=== PATIENT | male | born 1990 | race American Indian/Alaskan Native ===

== ENCOUNTER 2017-04-16 10:57 | Emergency (ER) | payer MEDICAID ==
[2017-04-16 11:02] VITALS: BP 121/75; PULSE 61; RESP 18; TEMP 97.8; O2SAT 98; BMI 26.2
[2017-04-16] MEDS ORDERED: Bacitracin 500 Units/gm Oint Foilpak UD TOP ONE (11:21)
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
== END 2017-04-16 11:34 | disposition home or self-care (01) ==
LOC: C.ER 10:57
DX: S80.212A Abrasion, left knee, initial encounter (principal); V18.4XXA Pedal cycle driver injured in noncollision transport accident in traffic accident, initial encounter; Y92.89 Other specified places as the place of occurrence of the external cause

== ENCOUNTER 2018-07-22 14:33 | Emergency (ER) | payer OTHER, MEDICAID ==
[2018-07-22 15:02] VITALS: BMI 21.3
[2018-07-22 15:06] VITALS: BP 130/78; PULSE 76; RESP 18; TEMP 98.3; O2SAT 98
--- NOTE | 2018-07-22 15:53 | C.PDOC ---
History Of Present Illness 27 year old female presents to the ED for evaluation. Patient states he was at work and was picking something with his hands when he felt sudden pain to his left ventral wrist area. Patient reports mild discoloration to the area. Patient denies extremity numbness/weakness or any injury to the area. Time Seen by Provider: 07/22/18 15:08 Chief Complaint (Nursing): Finger,Hand,&Wrist History Per: Patient History/Exam Limitations: no limitations Onset/Duration Of Symptoms: Hrs Current Symptoms Are (Timing): Still Present Quality: "Pain" Additional History Per: Patient Past Medical History Reviewed: Historical Data, Nursing Documentation, Vital Signs Vital Signs: Last Vital Signs Temp 98.3 F 07/22/18 15:01 Pulse 76 07/22/18 15:01 Resp 18 07/22/18 15:01 BP 130/78 07/22/18 15:01 Pulse Ox 98 07/22/18 15:01 - Medical History PMH: No Chronic Diseases Surgical History: No Surg Hx Family History: States: Unknown Family Hx - Social History Hx Alcohol Use: Yes Hx Substance Use: No - Immunization History Hx Tetanus Toxoid Vaccination: No Hx Influenza Vaccination: No Hx Pneumococcal Vaccination: No Review Of Systems Musculoskeletal: Positive for: Other (left wrist ) Neurological: Negative for: Weakness, Numbness Physical Exam - Physical Exam Appears: Non-toxic, No Acute Distress Skin: Normal Color, Warm, Dry Extremity: Normal ROM, Capillary Refill (less than 2 seconds ) Neurological/Psych: Oriented x3, Normal Speech, Normal Cognition, Normal Motor, Normal Sensation ED Course And Treatment O2 Sat by Pulse Oximetry: 98 (on RA) Pulse Ox Interpretation: Normal - Other Rad L wrist X-Ray: Interpreted by Me (neg) Progress Note: Left wrist XR ordered and reviewed. Motrin PO given. Medical Decision Making Medical Decision Making: L wrist minor sprain pt insists on 3 day work note Disposition Doctor Will See Patient In The: Office Counseled Patient/Family Regarding: Studies Performed, Diagnosis - Disposition Referrals: Lexy Travis MD [Medical Doctor] - Disposition: HOME/ ROUTINE Disposition Time: 15:52 Condition: GOOD Additional Instructions: ice pack 1/2 hour per hour, nothing hot motrin/advil 400 mg every 6 hours as needed wrist wrap for 24 hours outpatient follow-up as needed. Instructions: Wrist Sprain (DC) Forms: [facility] (Georgian), Work Excuse - Clinical Impression Clinical Impression: Left wrist sprain - Scribe Statement The provider has reviewed the documentation as recorded by the Scribe (Alaina Gay) Provider Attestation: All medical record entries made by the Scribe were at my direction and personally dictated by me. I have reviewed the chart and agree that the record accurately reflects my personal performance of the history, physical exam, medical decision making, and the department course for this patient. I have also personally directed, reviewed, and agree with the discharge instructions and disposition.
--- NOTE | 2018-07-22 16:08 | RAD ---
PROCEDURE: Wrist CT scan PET-CT is a 2 limits the issues in the the wrist Radiographs. HISTORY: gripped something, ventral wrist tender COMPARISON: None available. FINDINGS: BONES: No acute displaced fracture. 3 mm subchondral cyst, scaphoid. JOINTS: No dislocation. SOFT TISSUES: Unremarkable. No evidence of radiopaque foreign body OTHER FINDINGS: None. IMPRESSION: No acute findings. 3 mm subchondral cyst, scaphoid.
== END 2018-07-22 16:02 | disposition home or self-care (01) ==
LOC: C.ER 14:33
DX: S63.502A Unspecified sprain of left wrist, initial encounter (principal); X58.XXXA Exposure to other specified factors, initial encounter; Y92.89 Other specified places as the place of occurrence of the external cause